=== PATIENT | female | born 1945 | race African-American/Black ===

== ENCOUNTER 2018-05-29 20:01 | Inpatient (IN) | payer MEDICARE, OTHER ==
[2018-05-29] MEDS ORDERED: ONDANSETRON HCL INJ/PF 4 MG/2 ML SDV IV ONE (21:44)
--- NOTE | 2018-05-29 21:46 | ER Document Report ---
ED Medical Screen (RME) - General Chief Complaint: Nausea/Vomiting Stated Complaint: DIZZY/LIGHT HEADED Time Seen by Provider: 05/29/18 21:44 Notes: 72-year-old female with chief complaint of abdominal pain, nausea, and 3 episodes of vomiting. No recent bowel movement. No fever. No chest pain, shortness of breath, she states she felt lightheaded earlier but not now, denies any headache or head injury. No history of bowel obstruction, no abdominal surgeries reported. Started feeling pain after she took her blood pressure medication and a BC powder. No hematemesis. TRAVEL OUTSIDE OF THE [place] IN LAST 30 DAYS: No - Related Data Allergies/Adverse Reactions: No Known Allergies Allergy (Unverified 05/29/18 20:52) Past Medical History - Social History Chew tobacco use (# tins/day): No Frequency of alcohol use: None Drug Abuse: None - Past Medical History Cardiac Medical History: Reports: Hx Hypertension Renal/ Medical History: Denies: Hx Peritoneal Dialysis Past Surgical History: Reports: Hx Orthopedic Surgery - rt knee, carpal tunnel Physical Exam - Vital signs Vitals: Temp Pulse Resp BP Pulse Ox 98.4 F 103 H 20 159/126 H 99 05/29/18 20:26 05/29/18 20:26 05/29/18 20:26 05/29/18 20:26 05/29/18 20:26 - Abdominal Tenderness: Tender - Generalized abdominal tenderness, questionable distention, no overt guarding or rigidity, exam limited by sitting position Course - Vital Signs Vital signs: Temp Pulse Resp BP Pulse Ox 98.4 F 92 20 173/110 H 97 05/29/18 20:26 05/29/18 20:54 05/29/18 20:54 05/29/18 20:54 05/29/18 20:54 Doctor's Discharge - Discharge Referrals: HEALTH,SCREENING DOC [Primary Care Provider] - Follow up as needed
--- NOTE | 2018-05-29 22:41 | RADIOLOGY REPORT (SQ) ---
EXAM DESCRIPTION: XR ABDOMEN SUPINE AND ERECT WITH CHEST (ABD ACUTE SERIES) COMPLETED DATE/TME: 05/29/2018 21:44 CLINICAL HISTORY: 72 years Female, vomiting, no recent bowel movement COMPARISON: None. NUMBER OF VIEWS/TECHNIQUE: 3 LIMITATIONS: None. FINDINGS: Intestinal gas pattern is within normal limits. Paucity of bowel gas. No suspicious calcification. Grossly intact skeletal structures. No acute cardiopulmonary findings. Possible fibroid uterus. IMPRESSION: No acute findings.
[2018-05-29 23:21] LABS: ABSOLUTE LYMPHOCYTES (AUTO) 0.7 10^3/uL (0.5-4.7); ABSOLUTE MONOCYTES (AUTO) 0.2 10^3/uL (0.1-1.4); ABSOLUTE NEUT (AUTO) 9.9 10^3/uL (1.7-8.2); BASOPHILS % (AUTO) 0.3 % (0-2); EOSINOPHILS % (AUTO) 0.1 % (0-6); HEMATOCRIT 52.1 % (36.0-47.0); HEMOGLOBIN 17.6 g/dL (12.0-15.5); LYMPHOCYTES % (AUTO) 6.4 % (13-45); MEAN CORPUSCULAR HEMOGLOBIN 32.6 pg (27.0-33.4); MEAN CORPUSCULAR HGB CONC 33.8 g/dL (32.0-36.0); MEAN CORPUSCULAR VOLUME 96 fl (80-97); MONOCYTES % (AUTO) 2.1 % (3-13); PLATELET COUNT 300 10^3/uL (150-450); RED BLOOD COUNT 5.41 10^6/uL (3.72-5.28); RED CELL DISTRIBUTION WIDTH 13.8 % (11.5-14.0); SEGMENTED NEUTROPHILS % (AUTO) 91.1 % (42-78); TOTAL CELLS COUNTED % (AUTO) 100 %; WHITE BLOOD COUNT 10.9 10^3/uL (4.0-10.5)
[2018-05-29] MEDS ORDERED: HYDROCHLOROTHIAZIDE 50 MG TABLET PO ONE (23:35)
[2018-05-29] MEDS ORDERED: RINGERS SOLUTION,LACTATED 1,000 ML IV ONE (23:35)
[2018-05-29] MEDS ORDERED: MORPHINE SULFATE 10 MG/ML INJ IV PRN (23:35)
--- NOTE | 2018-05-29 23:38 | ER Document Report ---
ED General - General Chief Complaint: Nausea/Vomiting Stated Complaint: DIZZY/LIGHT HEADED Time Seen by Provider: 05/29/18 21:44 Notes: Patient is a 72 year old female with a past medical history of essential hypertension, no history of abdominal surgeries who presents with approximately 10-12 hours of progressively worsening generalized abdominal pain, nausea and vomiting. The patient states that her symptoms started gradually and have been progressively worsening since that time. Nothing improves or worsens her pain which she does describes a cramping, aching, diffuse pain. Nothing worsens the pain. She has not been able to tolerate oral intake since onset of her symptoms. She denies any history of similar symptoms in the past. She has not contacted her general doctor regarding today's concerns. She denies any diarrhea, last bowel movement was 2 days ago. No cough or sputum production. TRAVEL OUTSIDE OF THE [place] IN LAST 30 DAYS: No - Related Data Allergies/Adverse Reactions: No Known Allergies Allergy (Verified 05/29/18 22:53) Past Medical History - General Information source: Patient, Relative - Social History Smoking Status: Former Smoker Chew tobacco use (# tins/day): No Frequency of alcohol use: None Drug Abuse: None Lives with: Spouse/Significant other Family History: Reviewed & Not Pertinent Patient has suicidal ideation: No Patient has homicidal ideation: No - Past Medical History Cardiac Medical History: Reports: Hx Hypertension Renal/ Medical History: Denies: Hx Peritoneal Dialysis Past Surgical History: Reports: Hx Orthopedic Surgery - rt knee, carpal tunnel Review of Systems - Review of Systems Notes: Constitutional: Negative for fever. HENT: Negative for sore throat. Eyes: Negative for visual changes. Cardiovascular: Negative for chest pain. Respiratory: Negative for shortness of breath. Gastrointestinal: Positive for abdominal pain and vomiting Genitourinary: Negative for dysuria. Musculoskeletal: Negative for back pain. Skin: Negative for rash. Neurological: Negative for headaches, weakness or numbness. 10 point ROS negative except as marked above and in HPI. Physical Exam - Vital signs Vitals: Temp Pulse Resp BP Pulse Ox 98.4 F 103 H 20 159/126 H 99 05/29/18 20:26 05/29/18 20:26 05/29/18 20:26 05/29/18 20:26 05/29/18 20:26 Notes: PHYSICAL EXAMINATION: GENERAL: Appears moderately uncomfortable but in no acute distress HEAD: Atraumatic, normocephalic. EYES: Pupils equal round and reactive to light, extraocular movements intact, sclera anicteric, conjunctiva are normal. ENT: nares patent, oropharynx clear without exudates. Moderately dry mucous membranes. NECK: Normal range of motion, supple without lymphadenopathy LUNGS: Breath sounds clear to auscultation bilaterally and equal. No wheezes rales or rhonchi. HEART: Regular tachycardia without murmurs ABDOMEN: Soft, generalized abdominal tenderness on palpation without any areas of localization, normoactive bowel sounds. No guarding, no rebound. No masses appreciated. EXTREMITIES: Normal range of motion, no pitting or edema. No cyanosis. NEUROLOGICAL: No focal neurological deficits. Moves all extremities spontaneously and on command. PSYCH: Normal mood, normal affect. SKIN: Warm, Dry, normal turgor, no rashes or lesions noted. Course - Re-evaluation Re-evalutation: 05/29/18 23:37 Patient presents with several hours of generalized abdominal discomfort, most localized to the upper abdomen with associated vomiting and nausea. Patient appears uncomfortable on exam, noted to be to cardiac to 120 the time of my evaluation with marked hypertension. She does have a long-standing history of severe essential hypertension and has not taken her medications tonight. The patient has no prior history of abdominal surgeries. Primary concern is for possible obstruction versus acute biliary pathology, possible pancreatitis, less likely acute mesenteric ischemia or perforation. Acute abdominal series is noted to be normal. However given her advanced age, tachycardia and degree of pain will proceed with CT scan of her abdomen and pelvis to further clarify. 05/30/18 00:55 CT scan of the abdomen and pelvis does show diffuse inflammation of a large segment of the patient's small intestine in the lower abdomen which would readily explain her abdominal pain as well as her vomiting. Most probable etiology is infectious in etiology. No arterial occlusions noted to suggest an ischemic etiology. Lactate has been added onto her labs. Ceftriaxone and Flagyl have been initiated. I have discussed with the hospitalist who has agreed to admit the patient given her ongoing tachycardia, ongoing abdominal pain requiring IV analgesia and her inability to tolerate oral intake. - Vital Signs Vital signs: Temp Pulse Resp BP Pulse Ox 98.3 F 92 20 204/114 H 95 05/30/18 01:30 05/29/18 20:54 05/30/18 02:01 05/30/18 02:01 05/30/18 02:01 - Laboratory Result Diagrams: 05/29/18 23:11 05/29/18 23:11 Laboratory results interpreted by me: 05/29/18 05/29/18 23:11 23:11 WBC 10.9 H RBC 5.41 H Hgb 17.6 H Hct 52.1 H Seg Neutrophils % 91.1 H Lymphocytes % 6.4 L Monocytes % 2.1 L Absolute Neutrophils 9.9 H Potassium 3.5 L BUN 21 H Glucose 167 H AST 38 H Total Protein 9.3 H - Diagnostic Test Radiology reviewed: Reports reviewed Discharge - Discharge Clinical Impression: Essential hypertension, Generalized abdominal pain, Enteritis Nausea and vomiting Qualifiers: Vomiting type: unspecified Vomiting Intractability: unspecified Qualified Code( s): R11.2 - Nausea with vomiting, unspecified Condition: Fair Disposition: ADMITTED INPATIENT Admitting Provider: Hospitalist Unit Admitted: Telemetry
[2018-05-29 23:39] LABS: ALANINE AMINOTRANSFERASE 19 U/L (9-52); ALBUMIN 4.3 g/dL (3.5-5.0); ALKALINE PHOSPHATASE 111 U/L (38-126); ANION GAP 13 (5-19); ASPARTATE AMINO TRANSFERASE 38 U/L (14-36); BILIRUBIN,DIRECT 0.3 mg/dL (0.0-0.4); BILIRUBIN,TOTAL 0.7 mg/dL (0.2-1.3); BLOOD UREA NITROGEN 21 mg/dL (7-20); CALCIUM 9.7 mg/dL (8.4-10.2); CARBON DIOXIDE 27 mmol/L (22-30); CHLORIDE 104 mmol/L (98-107); GLUCOSE 167 mg/dL (75-110); LIPASE 133.3 U/L (23-300); POTASSIUM 3.5 mmol/L (3.6-5.0); SODIUM 143.7 mmol/L (137-145); TOTAL PROTEIN 9.3 g/dL (6.3-8.2)
[2018-05-29] MEDS ORDERED: METOCLOPRAMIDE HCL INJ/PF 10 MG/2 ML SDV IV ONE (23:42)
--- NOTE | 2018-05-30 00:29 | RADIOLOGY REPORT (SQ) ---
EXAM DESCRIPTION: CT ABDOMEN PELVIS WITH IV CONTRAST COMPLETED DATE/TME: 05/29/2018 23:34 CLINICAL HISTORY: generalized abdominal pain, vomiting COMPARISON: None Available. TECHNIQUE: CT of the abdomen and pelvis performed following IV administration of 74 mL of Omnipaque 350. Portal venous and delayed imaging obtained. DLP: 1010.41 mGycm FINDINGS: Lung Bases: Minimal dependent atelectasis. Bones: No destructive bone lesions identified. Degenerative change of the spine. Abdomen: Liver: The liver has normal size and density. No intrahepatic mass or biliary dilatation. Subcentimeter hypodensity in the right hepatic lobe is too small for accurate CT characterization may represent a cyst. Gallbladder: No calcified gallstones. Spleen, Pancreas, and Adrenal Glands: The spleen, pancreas, and adrenal glands are unremarkable. Kidneys: The kidneys have normal size and contour without evidence of solid mass or hydronephrosis. Bilateral Bosniak class I renal cysts. Vasculature: Aortoiliac atherosclerosis. IVC is unremarkable. The portal vein is patent. The celiac artery, SMA and [place] opacify proximally.. Stomach: Fluid-filled distal esophagus as well as gastric dilatation. Other: No free intraperitoneal air. Moderate amount of free fluid in the abdomen. Pelvis: Bladder: Urinary bladder is unremarkable. Bowel: Diffuse wall thickening of loops of small bowel in the lower abdomen. Hypoattenuation of the wall of the affected small bowel without evidence of pneumatosis. Inflammatory change in the adjacent mesentery. No dilated loops of bowel. Scattered diverticula of the colon. Appendix: Normal appendix. Pelvis: Large peripherally calcified exophytic structure arising from the uterus measuring 6.8 x 6.9 cm likely represents a uterine fibroid. IMPRESSION: 1. Long segment wall thickening with decreased wall attenuation and adjacent mesenteric inflammatory change of loops of small bowel in the lower abdomen. These findings are compatible with nonspecific enteritis. This could be of infectious, inflammatory, or ischemic etiology. No proximal occlusion noted of the visceral arteries. 2. Moderate amount of ascites. 3. Mild gastric distention with fluid in the esophagus. These findings may be related to gastroparesis. 4. There is a 6.9 cm structure arising from the uterus with peripheral calcifications possibly representing a uterine fibroid. This exam was performed according to our departmental dose-optimization program, which includes automated exposure control, adjustment of the mA and/or kV according to patient size and/or use of iterative reconstruction technique.
[2018-05-30] MEDS ORDERED: HYDROCHLOROTHIAZIDE 50 MG TABLET ONE (00:36)
[2018-05-30] MEDS ORDERED: CEFTRIAXONE INJ 1000 MG VIAL IV ONE (00:50)
[2018-05-30] MEDS ORDERED: PANTOPRAZOLE SODIUM 40 MG VIAL IV ONE (00:54)
[2018-05-30] MEDS ORDERED: METRONIDAZOLE 500 MG/NS RTU 500 MG/100 ML RTUPB IV ONE (01:00)
[2018-05-30 03:01] LABS: APPEARANCE,URINE CLEAR; BILIRUBIN,URINE NEGATIVE (NEGATIVE); COLOR,URINE YELLOW; GLUCOSE, URINE NEGATIVE (NEGATIVE); KETONES,URINE TRACE mg/dL (NEGATIVE); LEUKOCYTE ESTERASE,URINE NEGATIVE (NEGATIVE); NITRITE,URINE NEGATIVE (NEGATIVE); PROTEIN,URINE 100 mg/dL (NEGATIVE); UROBILINOGEN,URINE NEGATIVE mg/dL (<2.0)
[2018-05-30 03:02] LABS: URINE SPECIFIC GRAVITY > 1.060
[2018-05-30] MEDS ORDERED: POTASSI CL 20 MEQ/NS 1L 1,000 ML IV PRN (03:03)
[2018-05-30] MEDS ORDERED: GLUCAGON,HUMAN RECOMB 1 MG INJ SUBCUT PRN (03:03)
[2018-05-30] MEDS ORDERED: ACETAMINOPHEN 650 MG SUPP.RECT PR PRN (03:03)
[2018-05-30] MEDS ORDERED: DEXTROSE 40% GEL 15 GM TUBE PO PRN ×2 (03:03)
[2018-05-30] MEDS ORDERED: ACETAMINOPHEN 325 MG TABLET PO PRN (03:03)
[2018-05-30] MEDS ORDERED: MAG HYDROX/AL HYDROX/SIMETH SUSP 30 ML UDCUP PO PRN (03:03)
[2018-05-30] MEDS ORDERED: DEXTROSE 50%-WATER 25 GM/50 ML DISP.SYRIN IV PRN ×2 (03:03)
[2018-05-30] MEDS ORDERED: LABETALOL HCL INJ 20 MG/4 ML DISP.SYRIN IV PRN (03:12)
[2018-05-30] MEDS ORDERED: METOPROLOL TARTRATE PF/INJ 5 MG/5 ML SDV IV PRN (03:13)
[2018-05-30] MEDS ORDERED: MORPHINE SULFATE 10 MG/ML INJ IV PRN (03:25)
--- NOTE | 2018-05-30 04:08 | PDOC H&P ---
History of Present Illness Admission Date/PCP: 05/30/18 01:04 DINAH PATE MD Patient complains of: Abdominal pain History of Present Illness: CHELSIE DELANEY is a 72 year old female comes to the emergency department complaining of abdominal pain, nausea and vomiting. She tells me that last Saturday she fell and broke her right arm, on Saturday she is started with a medication that she does not remember that was given for her arm and she started with abdominal pain, diffuse across her abdomen has been worsening over time, today was 10/10 intensity, sharp in nature, yesterday morning started with episodes of persistent nausea and nonbloody vomiting with clear secretions. Her appetite is severely decreased and she has been eating in the last 2 days. Tells me that she had an episode of fever today but no chills, denies diarrhea or urinary symptoms. Feels generalized weakness, denies dizziness or chills. She did not pass gas since morning, her last bowel movement was 2 days ago. Complains of abdominal distention. CT abdomen and pelvis done in the ED shows long segment wall thickening of a small bowel while compatible with enteritis associated with mesenteric inflammation. Given IV Rocephin and IV Flagyl in the ED. She also came with elevated blood pressure 220/119 LA 3.7. Past Medical History Cardiac Medical History: Reports: Hypertension Past Surgical History Past Surgical History: Reports: Orthopedic Surgery - rt knee replacement, carpal tunnel Social History Information Source: Patient Lives with: Spouse/Significant other Smoking Status: Former Smoker Frequency of Alcohol Use: None Hx Recreational Drug Use: No Hx Prescription Drug Abuse: No Past Social History Note: Lives with and grand child Family History Family History: Reviewed & Not Pertinent Family History: Remarkable for mother with hypertension, does not know about her father Parental Family History Reviewed: Yes - As above Children Family History Reviewed: NA Sibling(s) Family History Reviewed.: NA Medication/Allergy Allergies/Adverse Reactions: No Known Allergies Allergy (Verified 05/29/18 22:53) Review of Systems Review of Systems: As outlined in the HPI, others negative Physical Exam Vital Signs: Temp Pulse Resp BP Pulse Ox 98.3 F 92 20 160/127 H 95 05/30/18 01:30 05/29/18 20:54 05/30/18 02:01 05/30/18 03:01 05/30/18 03:01 Intake & Output 05/28/18 05/29/18 05/30/18 06:59 06:59 06:59 Intake Total 1000 Balance 1000 Additional comments: General appearance: Well-developed, well-nourished, alert and cooperative, and appears to be in no acute distress Head: Normocephalic Eyes: PEERL, EOMI, vision is grossly intact. Ears: External auditory canal and tympanic membranes clear, hearing grossly intact. Nose: No nasal discharge. Throat: Oral cavity and pharynx normal. No inflammation, swelling, exudate or lesions. Neck: Neck supple, nontender without lymphadenopathy, masses or thyromegaly. Cardiac: Normal S1 and S2. No S3, S4 or murmurs. Rhythm is regular. There is no peripheral edema, cyanosis or pallor. Extremities are warm and well perfused. Capillary refill is less than 2 seconds. No carotid bruits. Lungs: Clear to auscultation and percussion without rales, rhonchi, wheezing or diminished breath sounds. Not using accessory muscles. Abdomen: Decreased bowel sounds. Soft. Moderate distended, tenderness around periumbilical area. No guarding or rebound. No masses. No hepatosplenomegaly Extremities: No significant deformity or joint abnormality. No edema. Peripheral pulses intact. No varicosities. Neurological: Cranial nerves II through XII grossly intact. Strength and sensation symmetric and intact throughout. Reflexes 2+ throughout. Skin: Skin normal color, texture and turgor with no lesions or eruptions, warm and dry. Psychiatric: The mental examination revealed the patient was oriented to person , place, and time. The patient was able to demonstrate good judgment on recent , without hallucinations, abnormal affect or abnormal behaviors. Results Laboratory Results: 05/30/18 05/30/18 01:13 02:43 Lactic Acid 3.7 H Urine Color YELLOW Urine Appearance CLEAR Urine pH 5.0 Ur Specific [place] > 1.060 Urine Protein 100 H Urine Glucose (UA) NEGATIVE Urine Ketones TRACE H Urine Blood NEGATIVE Urine Nitrite NEGATIVE Ur Leukocyte Esterase NEGATIVE Urine WBC (Auto) 3 Urine RBC (Auto) 3 05/30/18 01:13 Troponin I < 0.012 05/29/18 05/29/18 05/30/18 23:11 23:11 01:13 WBC 10.9 H RBC 5.41 H Hgb 17.6 H Hct 52.1 H MCV 96 MCH 32.6 MCHC 33.8 RDW 13.8 Plt Count 300 Seg Neutrophils % 91.1 H Lymphocytes % 6.4 L Monocytes % 2.1 L Eosinophils % 0.1 Basophils % 0.3 Absolute Neutrophils 9.9 H Absolute Lymphocytes 0.7 Absolute Monocytes 0.2 Absolute Eosinophils 0.0 Absolute Basophils 0.0 Sodium 143.7 Potassium 3.5 L Chloride 104 Carbon Dioxide 27 Anion Gap 13 BUN 21 H Creatinine 0.63 Est GFR ( Amer) > 60 Est GFR (Non-Af Amer) > 60 Glucose 167 H Lactic Acid 3.7 H Calcium 9.7 Total Bilirubin 0.7 Direct Bilirubin 0.3 AST 38 H ALT 19 Alkaline Phosphatase 111 Troponin I Total Protein 9.3 H Albumin 4.3 Lipase 133.3 Urine Color Urine Appearance Urine pH Ur Specific [place] Urine Glucose (UA) Urine Ketones Urine Blood Urine Nitrite Urine Bilirubin Urine Urobilinogen Ur Leukocyte Esterase Urine WBC (Auto) Urine RBC (Auto) Squamous Epi Cells Auto Urine Mucus (Auto) Urine Ascorbic Acid 05/30/18 05/30/18 01:13 02:43 WBC RBC Hgb Hct MCV MCH MCHC RDW Plt Count Seg Neutrophils % Lymphocytes % Monocytes % Eosinophils % Basophils % Absolute Neutrophils Absolute Lymphocytes Absolute Monocytes Absolute Eosinophils Absolute Basophils Sodium Potassium Chloride Carbon Dioxide Anion Gap BUN Creatinine Est GFR ( Amer) Est GFR (Non-Af Amer) Glucose Lactic Acid Calcium Total Bilirubin Direct Bilirubin AST ALT Alkaline Phosphatase Troponin I < 0.012 Total Protein Albumin Lipase Urine Color YELLOW Urine Appearance CLEAR Urine pH 5.0 Ur Specific [place] > 1.060 Urine Glucose (UA) NEGATIVE Urine Ketones TRACE H Urine Blood NEGATIVE Urine Nitrite NEGATIVE Urine Bilirubin NEGATIVE Urine Urobilinogen NEGATIVE Ur Leukocyte Esterase NEGATIVE Urine WBC (Auto) 3 Urine RBC (Auto) 3 Squamous Epi Cells Auto 1 Urine Mucus (Auto) OCC Urine Ascorbic Acid NEGATIVE Impressions: Acute Abdomen Series 05/29/18 21:44 IMPRESSION: No acute findings. Abdomen/Pelvis CT 05/29/18 23:34 IMPRESSION: 1. Long segment wall thickening with decreased wall attenuation and adjacent mesenteric inflammatory change of loops of small bowel in the lower abdomen. These findings are compatible with nonspecific enteritis. This could be of infectious, inflammatory, or ischemic etiology. No proximal occlusion noted of the visceral arteries. 2. Moderate amount of ascites. 3. Mild gastric distention with fluid in the esophagus. These findings may be related to gastroparesis. 4. There is a 6.9 cm structure arising from the uterus with peripheral calcifications possibly representing a uterine fibroid. This exam was performed according to our departmental dose-optimization program, which includes automated exposure control, adjustment of the mA and/or kV according to patient size and/or use of iterative reconstruction technique. Assessment & Plan - Diagnosis (1) Enteritis Is this a current diagnosis for this admission?: Yes Plan: Patient comes with abdominal pain, persistent nausea and vomiting. Not passing gas and last bowel movement [address] abdomen shows enteritis with mesenteric inflammation. IV Rocephin and IV Flagyl given, I will continue with IV ciprofloxacin twice a day. Please follow blood cultures. Unclear if this is bacterial, viral or ischemic. Due to the mesenteric inflammation I will ask general surgery to evaluate the patient and give us recommendations, we appreciate their input. IV Protonix. Patient will remain n.p.o. IV fluids. The pain medication and antiemetics as needed (2) Hypertensive urgency Is this a current diagnosis for this admission?: Yes Plan: Blood pressure 220/119, likely secondary to do not take medications at home as. She could not tolerate any p.o. intake. I will place the patient on Lopressor 5 mg every 6 hours schedule with IV labetalol as needed. (3) Severe dehydration Is this a current diagnosis for this admission?: Yes Plan: Secondary to persistent nausea and vomiting, urinalysis with a specific gravity of 1.060, IV fluid bolus given in the ED, I will continue with NS KCL running at 100 cc/h. We will reassess renal function in the morning, not on renal failure, but noted hemoconcentration. (4) Lactic acidosis Is this a current diagnosis for this admission?: Yes Plan: Lactic acid 3.7, patient is receiving IV fluid hydration. It could be also secondary to ischemic bowel, will reassess lactic acid with morning labs. - Time Time Spent: 30 to 50 Minutes - Inpatient Certification Based on my medical assessment, after consideration of the patient's comorbidities, presenting symptoms, or acuity I expect that the services needed warrant INPATIENT care.: Yes I certify that my determination is in accordance with my understanding of Medicare's requirements for reasonable and necessary INPATIENT services [42 CFR 412.3e].: Yes Medical Necessity: Risk of Complication if Not Cared For in Hospital
[2018-05-30] MEDS ORDERED: HYDRALAZINE HCL INJ/PF 20 MG/1 ML SDV ONE (04:47)
[2018-05-30] MEDS ORDERED: CIPROFLOXACIN 400 MG/D5W RTU 400 MG/200 ML RTUPB IV ONE (05:00)
[2018-05-30] MEDS: HYDRALAZINE HCL INJ/PF 20 MG/1 ML SDV IV PRN (05:14)
[2018-05-30] MEDS ORDERED: HYDROMORPHONE HCL INJ/PF 2 MG/ML AMPULE IV ONE (05:29)
[2018-05-30] MEDS: METOPROLOL TARTRATE PF/INJ 5 MG/5 ML SDV IV SCH ×3 (05:39→17:43)
[2018-05-30] MEDS: METOCLOPRAMIDE HCL INJ/PF 10 MG/2 ML SDV IV SCH ×3 (06:45→17:43)
[2018-05-30] MEDS: HEPARIN SOD (PORCINE) 5,000 UNIT/ML 1 ML SYRINGE SUBCUT SCH ×3 (06:47→22:00)
--- NOTE | 2018-05-30 06:54 | PDOC CONSULTATION ---
Consultation Consult Date: 05/30/18 Attending physician:: VONNIE KOROMA Consult reason:: Gastroenteritis History of Present Illness Admission Date/PCP: 05/30/18 01:04 DINAH PATE MD Patient complains of: Abdominal pain History of Present Illness: CHELSIE DELANEY is a 72 year old female Who presents the emergency department by ground rescue complaining of a week history of intermittent abdominal pain, nausea, anorexia abdominal bloating; last bowel movement 2 days ago, normal. Patient has chronic constipation. Patient had a colonoscopy with the last years by Dr. Sahu, reportedly negative. According the patient she denies history of trauma, previous episodes of abdominal pain but occasionally has bloating. She has taken pain medication, BC powder for recent right wrist fracture sustained while she was flicking a frog off of the dorsal aspect of her left wrist. She is approximately 1 week ago. Patient seen in the emergency department where she was found to have abdominal distention. CT scan of the abdomen and pelvis without oral contrast showed intraperitoneal fluid, a loop of small bowel, with thickened small bowel wall. Surgery was consulted for further evaluation. While in the emergency department the patient received narcotics. She feels better now. Past Medical History Cardiac Medical History: Reports: Hypertension Past Surgical History Past Surgical History: Reports: Orthopedic Surgery - rt knee replacement, carpal tunnel, Other - Right knee replacement Social History Lives with: Spouse/Significant other Smoking Status: Former Smoker Frequency of Alcohol Use: None Hx Recreational Drug Use: No Hx Prescription Drug Abuse: No Family History Family History: Reviewed & Not Pertinent Parental Family History Reviewed: Yes Children Family History Reviewed: Yes Sibling(s) Family History Reviewed.: Yes Medication/Allergy Allergies/Adverse Reactions: No Known Allergies Allergy (Verified 05/29/18 22:53) Review of Systems Constitutional: PRESENT: as per HPI Eyes: ABSENT: visual disturbances Ears: ABSENT: hearing changes Cardiovascular: ABSENT: chest pain, dyspnea on exertion, edema, orthropnea, palpitations Gastrointestinal: PRESENT: as per HPI Physical Exam Vital Signs: Temp Pulse Resp BP Pulse Ox 98.5 F 92 14 111/62 96 05/30/18 05:00 05/29/18 20:54 05/30/18 06:01 05/30/18 06:01 05/30/18 06:30 Intake & Output 05/28/18 05/29/18 05/30/18 06:59 06:59 06:59 Intake Total 1300 Balance 1300 General appearance: PRESENT: mild distress Head exam: PRESENT: normocephalic Eye exam: PRESENT: EOMI Mouth exam: PRESENT: dry mucosa Neck exam: PRESENT: full ROM Respiratory exam: PRESENT: clear to auscultation isaías Cardiovascular exam: PRESENT: RRR Pulses: PRESENT: normal carotid pulses, normal radial pulses GI/Abdominal exam: PRESENT: other - Distended, mildly tympanitic no peritoneal signs no rigidity no organ Rectal exam: PRESENT: deferred, other Extremities exam: PRESENT: full ROM Musculoskeletal exam: PRESENT: full ROM Neurological exam: PRESENT: alert, awake, oriented to person, oriented to time, oriented to situation Psychiatric exam: PRESENT: appropriate affect Skin exam: PRESENT: dry Results Laboratory Results: 05/30/18 05/30/18 01:13 02:43 Lactic Acid 3.7 H Urine Color YELLOW Urine Appearance CLEAR Urine pH 5.0 Ur Specific [place] > 1.060 Urine Protein 100 H Urine Glucose (UA) NEGATIVE Urine Ketones TRACE H Urine Blood NEGATIVE Urine Nitrite NEGATIVE Ur Leukocyte Esterase NEGATIVE Urine WBC (Auto) 3 Urine RBC (Auto) 3 05/30/18 01:13 Troponin I < 0.012 Impressions: Acute Abdomen Series 05/29/18 21:44 IMPRESSION: No acute findings. Abdomen/Pelvis CT 05/29/18 23:34 IMPRESSION: 1. Long segment wall thickening with decreased wall attenuation and adjacent mesenteric inflammatory change of loops of small bowel in the lower abdomen. These findings are compatible with nonspecific enteritis. This could be of infectious, inflammatory, or ischemic etiology. No proximal occlusion noted of the visceral arteries. 2. Moderate amount of ascites. 3. Mild gastric distention with fluid in the esophagus. These findings may be related to gastroparesis. 4. There is a 6.9 cm structure arising from the uterus with peripheral calcifications possibly representing a uterine fibroid. This exam was performed according to our departmental dose-optimization program, which includes automated exposure control, adjustment of the mA and/or kV according to patient size and/or use of iterative reconstruction technique. Assessment & Plan - Diagnosis (1) Generalized abdominal pain Is this a current diagnosis for this admission?: Yes Plan: Impression: Abdominal pain nausea, bloating, severe dehydration, CT scan findings consistent with gastroenteritis; however intraperitoneal fluid of unclear etiology. Recommendations: 1. Hold all narcotics 2. Increase aggressiveness of fluid resuscitation; patient may benefit from a large bore nasogastric tube to relieve belching. 3. Repeat CT scan with oral contrast which may be both diagnostic and therapeutic in delineating the small bowel dilatation pathoanatomy 4. No immediate indication for surgical intervention; we will follow with you (2) Essential hypertension Is this a current diagnosis for this admission?: Yes (3) Lactic acidosis Is this a current diagnosis for this admission?: Yes (4) Nausea and vomiting Qualifiers: Vomiting type: unspecified Vomiting Intractability: unspecified Qualified Code(s): R11.2 - Nausea with vomiting, unspecified (5) Severe dehydration Is this a current diagnosis for this admission?: Yes - Time Time Spent: 30 to 50 Minutes Smoking Cessation Education: over 10 minutes Medications reviewed and adjusted accordingly: Yes Anticipated discharge: Home - Inpatient Certification Based on my medical assessment, after consideration of the patient's comorbidities, presenting symptoms, or acuity I expect that the services needed warrant INPATIENT care.: Yes I certify that my determination is in accordance with my understanding of Medicare's requirements for reasonable and necessary INPATIENT services [42 CFR 412.3e].: Yes
[2018-05-30] MEDS ORDERED: NORMAL SALINE 1000 ML 1,000 ML IV ONE (06:59)
--- NOTE | 2018-05-30 07:31 | RADIOLOGY REPORT (SQ) ---
CLINICAL DATA: 72-year-old female who presents for placement of NG tube. TECHNICAL DATA: A single supine x-ray of the abdomen was performed on 05/30/2018 at 6:58 AM. Comparison: CT abdomen and pelvis performed on 05/29/2018. FINDINGS: The visualized bowel gas pattern is nonspecific and nonobstructive. A nasogastric tube is present which extends below the diaphragm and projects over the region of the body of the stomach. The visualized portions of the lungs are clear. The cardiac silhouette is top normal in size. No pathologic abdominal or pelvic calcifications are identified. No abnormal air collections are identified. No focal soft tissue abnormalities are seen. No acute osseous abnormalities are identified. IMPRESSION: The nasogastric tube extends below the diaphragm and projects over the region of the body of the stomach.
--- NOTE | 2018-05-30 07:37 | EKG REPORT ---
SEVERITY:- ABNORMAL ECG - SINUS TACHYCARDIA PROBABLE LEFT ATRIAL ABNORMALITY PROBABLE LEFT VENTRICULAR HYPERTROPHY BORDERLINE T ABNORMALITIES, INFERIOR LEADS : Confirmed by: Luther Walker MD 30-May-2018 07:36:55
--- NOTE | 2018-05-30 07:40 | EKG REPORT ---
SEVERITY:- ABNORMAL ECG - SINUS TACHYCARDIA LEFT ATRIAL ABNORMALITY LEFT AXIS DEVIATION LEFT VENTRICULAR HYPERTROPHY BORDERLINE T ABNORMALITIES, INFERIOR LEADS POOR R WAVE PROGRESSION PRECORDIAL LEADS,CONSIDER LEAD PLACEMENT ERROR VS OLD ANTERIOR MD. : Confirmed by: Luther Walker MD 30-May-2018 07:39:42
[2018-05-30 07:49] LABS: ABSOLUTE LYMPHOCYTES (AUTO) 0.8 10^3/uL (0.5-4.7); ABSOLUTE MONOCYTES (AUTO) 0.8 10^3/uL (0.1-1.4); BASOPHILS % (AUTO) 0.5 % (0-2); HEMATOCRIT 45.1 % (36.0-47.0); LYMPHOCYTES % (AUTO) 7.2 % (13-45); MEAN CORPUSCULAR HEMOGLOBIN 32.4 pg (27.0-33.4); MEAN CORPUSCULAR VOLUME 95 fl (80-97); MONOCYTES % (AUTO) 7.5 % (3-13); PLATELET COUNT 305 10^3/uL (150-450); RED BLOOD COUNT 4.73 10^6/uL (3.72-5.28); RED CELL DISTRIBUTION WIDTH 13.7 % (11.5-14.0); SEGMENTED NEUTROPHILS % (AUTO) 84.8 % (42-78); TOTAL CELLS COUNTED % (AUTO) 100 %; WHITE BLOOD COUNT 10.6 10^3/uL (4.0-10.5)
[2018-05-30 07:50] LABS: HEMOGLOBIN 15.3 g/dL (12.0-15.5)
[2018-05-30 07:57] LABS: INTERNATIONAL RATION (INR) 0.98; PROTHROMBIN TIME 13.5 SEC (11.4-15.4)
[2018-05-30 07:58] LABS: PARTIAL THROMBOPLASTIN TIME 24.9 SEC (23.5-35.8)
[2018-05-30 08:17] LABS: ALANINE AMINOTRANSFERASE 18 U/L (9-52); ALBUMIN 3.2 g/dL (3.5-5.0); ALKALINE PHOSPHATASE 72 U/L (38-126); ANION GAP 13 (5-19); ASPARTATE AMINO TRANSFERASE 19 U/L (14-36); BILIRUBIN,DIRECT 0.3 mg/dL (0.0-0.4); BILIRUBIN,TOTAL 0.4 mg/dL (0.2-1.3); BLOOD UREA NITROGEN 22 mg/dL (7-20); CALCIUM 8.4 mg/dL (8.4-10.2); CARBON DIOXIDE 20 mmol/L (22-30); CHLORIDE 107 mmol/L (98-107); GLUCOSE 142 mg/dL (75-110); POTASSIUM 3.6 mmol/L (3.6-5.0); SODIUM 139.7 mmol/L (137-145); TOTAL PROTEIN 6.9 g/dL (6.3-8.2)
[2018-05-30] MEDS: PANTOPRAZOLE SODIUM 40 MG VIAL IV SCH (11:02)
[2018-05-30] MEDS ORDERED: RINGERS SOLUTION,LACTATED 1,000 ML IV ONE (14:09)
[2018-05-30] MEDS ORDERED: BENZOCAINE 20% AEROSOL SPRAY 60 GM TP PRN (16:57)
--- NOTE | 2018-05-30 16:57 | Progress Note ---
<RUFINO SHARP - Last Filed: 05/30/18 16:50> Provider Note Provider Note: 72 y.o. F admitted with abdominal pain found to have acute enteritis on CT. Reviewed and agree with field auditor and surgicalist plan of care: 1. ENTERITIS: infectious vs inflammatory vs viral. no surgical option. Aggressive IVF and treat with ABX. Blood cultures pending. Elevated lactate (3.7 ), patient is currently not HYPOtensive or tachycardic or febrile, plan to lactate recheck in AM. 2. HTN Urgency: 220/119 initially. Treated with IV lopressor. Remained slightly hypertensive while inpatient. Increased scheduled dose of IV lopressor from 5mg to 10mg IV Q6Hr 3. DEHYDRATION: Hypovolemia secondary to dehydration. IVF bolus in ED. Changed IVF to NS @ 125mL/hr. 4. LACTIC ACIDOSIS: Lactate 3.7 secondary to hypovolemia vs enteritis. Patient is not HYPOtensive, tachycardic or febrile. Will simply follow lactate in AM. <RODOLFO DAVIS - Last Filed: 06/17/18 16:56> Assessment/Plan - Assessment/Plan Plan: I have discussed the patient in detail with GELY Sharp. I am in agreement with her evaluation and plan.
[2018-05-30] MEDS: NORMAL SALINE 1000 ML 1,000 ML IV PRN (17:09)
[2018-05-30] MEDS: CIPROFLOXACIN 400 MG/D5W RTU 400 MG/200 ML RTUPB IV SCH (17:12)
[2018-05-31] MEDS ORDERED: LISINOPRIL 10 MG TABLET PO ONE (00:15)
[2018-05-31] MEDS: METOPROLOL TARTRATE PF/INJ 5 MG/5 ML SDV IV SCH ×4 (00:21→17:18)
[2018-05-31] MEDS: METOCLOPRAMIDE HCL INJ/PF 10 MG/2 ML SDV IV SCH ×4 (00:25→17:18)
[2018-05-31] MEDS ORDERED: LOSARTAN POTASSIUM 50 MG TABLET PO ONE (00:30)
[2018-05-31] MEDS ORDERED: HYDROCHLOROTHIAZIDE 12.5 MG TABLET PO ONE (00:30)
[2018-05-31] MEDS: HYDRALAZINE HCL INJ/PF 20 MG/1 ML SDV IV PRN (01:30)
[2018-05-31] MEDS: CIPROFLOXACIN 400 MG/D5W RTU 400 MG/200 ML RTUPB IV SCH ×2 (05:37→17:18)
[2018-05-31] MEDS: HEPARIN SOD (PORCINE) 5,000 UNIT/ML 1 ML SYRINGE SUBCUT SCH ×3 (05:46→22:20)
[2018-05-31 07:12] LABS: ABSOLUTE LYMPHOCYTES (AUTO) 1.2 10^3/uL (0.5-4.7); ABSOLUTE MONOCYTES (AUTO) 0.7 10^3/uL (0.1-1.4); BASOPHILS % (AUTO) 0.3 % (0-2); HEMATOCRIT 39.3 % (36.0-47.0); HEMOGLOBIN 13.4 g/dL (12.0-15.5); LYMPHOCYTES % (AUTO) 13.8 % (13-45); MEAN CORPUSCULAR HEMOGLOBIN 32.2 pg (27.0-33.4); MEAN CORPUSCULAR VOLUME 95 fl (80-97); MONOCYTES % (AUTO) 7.7 % (3-13); PLATELET COUNT 289 10^3/uL (150-450); RED BLOOD COUNT 4.14 10^6/uL (3.72-5.28); RED CELL DISTRIBUTION WIDTH 13.6 % (11.5-14.0); SEGMENTED NEUTROPHILS % (AUTO) 78.2 % (42-78); TOTAL CELLS COUNTED % (AUTO) 100 %; WHITE BLOOD COUNT 8.9 10^3/uL (4.0-10.5)
[2018-05-31 07:28] LABS: ALANINE AMINOTRANSFERASE 23 U/L (9-52); ALKALINE PHOSPHATASE 71 U/L (38-126); ANION GAP 7 (5-19); ASPARTATE AMINO TRANSFERASE 23 U/L (14-36); BILIRUBIN,DIRECT 0.3 mg/dL (0.0-0.4); BILIRUBIN,TOTAL 0.6 mg/dL (0.2-1.3); BLOOD UREA NITROGEN 17 mg/dL (7-20); CALCIUM 8.9 mg/dL (8.4-10.2); CARBON DIOXIDE 24 mmol/L (22-30); CHLORIDE 105 mmol/L (98-107); GLUCOSE 115 mg/dL (75-110); POTASSIUM 3.5 mmol/L (3.6-5.0); SODIUM 136.3 mmol/L (137-145); TOTAL PROTEIN 6.7 g/dL (6.3-8.2)
[2018-05-31 07:29] LABS: INTERNATIONAL RATION (INR) 0.97; PROTHROMBIN TIME 13.4 SEC (11.4-15.4)
[2018-05-31 07:30] LABS: PARTIAL THROMBOPLASTIN TIME 28.6 SEC (23.5-35.8)
[2018-05-31] MEDS: NORMAL SALINE 1000 ML 1,000 ML IV PRN ×2 (09:50→22:24)
[2018-05-31] MEDS: HYDROCHLOROTHIAZIDE 12.5 MG TABLET PO SCH (09:52)
[2018-05-31] MEDS: LOSARTAN POTASSIUM 50 MG TABLET PO SCH (09:52)
[2018-05-31] MEDS: LISINOPRIL 10 MG TABLET PO SCH (09:53)
[2018-05-31] MEDS: PANTOPRAZOLE SODIUM 40 MG VIAL IV SCH (09:53)
[2018-05-31] MEDS ORDERED: METOPROLOL TARTRATE PF/INJ 5 MG/5 ML SDV IV PRN (17:45)
--- NOTE | 2018-05-31 17:52 | PDOC PROGRESS REPORT ---
<SHARPRUFINO Alessandro - Last Filed: 05/31/18 17:48> Subjective Progress Note for:: 05/31/18 Subjective:: 72 y.o. F admitted with abdominal pain found to have acute enteritis on CT. Likely inflammatory secondary to medication - patient reports she took aspirin powder and an unknown laxative around the time that her symptoms started. Additionally, the patient states she ingested apple cider vinegar with the medications. She states that she began experiencing abdominal pain/N/V shortly thereafter. The patient was seen this morning on rounds. She denies abdominal pain or nausea or vomiting. The patient states she does not feel bloated and her abdominal distention has improved. Lab work is all benign and patient's VS have remained stable for >24hrs. Abdominal exam unimpressive. +BS. No TTP. Plan to d/c NG tube and initiate clear liquids today. Reason For Visit: ACUTE ENTERITIS Physical Exam Vital Signs: Temp Pulse Resp BP Pulse Ox 98.4 F 85 20 173/86 H 100 05/31/18 15:32 05/31/18 15:32 05/31/18 15:32 05/31/18 15:32 05/31/18 15:32 Intake & Output 05/30/18 05/31/18 06/01/18 06:59 06:59 06:59 Intake Total 1300 3825 Output Total 720 550 Balance 1300 3105 -550 Weight 77.9 kg Results Laboratory Results: 05/31/18 06:09 05/31/18 06:09 05/31/18 05/31/18 05/31/18 06:09 06:09 06:09 WBC 8.9 RBC 4.14 Hgb 13.4 Hct 39.3 MCV 95 MCH 32.2 MCHC 34.0 RDW 13.6 Plt Count 289 Seg Neutrophils % 78.2 H Lymphocytes % 13.8 Monocytes % 7.7 Eosinophils % 0.0 Basophils % 0.3 Absolute Neutrophils 7.0 Absolute Lymphocytes 1.2 Absolute Monocytes 0.7 Absolute Eosinophils 0.0 Absolute Basophils 0.0 Sodium 136.3 L Potassium 3.5 L Chloride 105 Carbon Dioxide 24 Anion Gap 7 BUN 17 Creatinine 0.67 Est GFR ( Amer) > 60 Est GFR (Non-Af Amer) > 60 Glucose 115 H Lactic Acid 1.2 Calcium 8.9 Magnesium Total Bilirubin 0.6 AST 23 ALT 23 Alkaline Phosphatase 71 Total Protein 6.7 Albumin 3.0 L 05/31/18 06:09 WBC RBC Hgb Hct MCV MCH MCHC RDW Plt Count Seg Neutrophils % Lymphocytes % Monocytes % Eosinophils % Basophils % Absolute Neutrophils Absolute Lymphocytes Absolute Monocytes Absolute Eosinophils Absolute Basophils Sodium Potassium Chloride Carbon Dioxide Anion Gap BUN Creatinine Est GFR ( Amer) Est GFR (Non-Af Amer) Glucose Lactic Acid Calcium Magnesium 1.8 Total Bilirubin AST ALT Alkaline Phosphatase Total Protein Albumin 05/30/18 01:13 Troponin I < 0.012 Impressions: Acute Abdomen Series 05/29/18 21:44 IMPRESSION: No acute findings. Abdomen/Pelvis CT 05/29/18 23:34 IMPRESSION: 1. Long segment wall thickening with decreased wall attenuation and adjacent mesenteric inflammatory change of loops of small bowel in the lower abdomen. These findings are compatible with nonspecific enteritis. This could be of infectious, inflammatory, or ischemic etiology. No proximal occlusion noted of the visceral arteries. 2. Moderate amount of ascites. 3. Mild gastric distention with fluid in the esophagus. These findings may be related to gastroparesis. 4. There is a 6.9 cm structure arising from the uterus with peripheral calcifications possibly representing a uterine fibroid. This exam was performed according to our departmental dose-optimization program, which includes automated exposure control, adjustment of the mA and/or kV according to patient size and/or use of iterative reconstruction technique. KUB X-Ray 05/30/18 06:46 IMPRESSION: The nasogastric tube extends below the diaphragm and projects over the region of the body of the stomach. Assessment & Plan - Diagnosis (1) Lactic acidosis Is this a current diagnosis for this admission?: Yes Plan: RESOLVED Lactate 1.9 today, down from 3.7 Will recheck in AM (2) Enteritis Is this a current diagnosis for this admission?: Yes Plan: N/V/ABDOMINAL PAIN Likely inflammatory, no clear infectious source Patient denies abdominal pain today D/C NG tube Initiate clear liquids (3) Essential hypertension Is this a current diagnosis for this admission?: Yes Plan: Patient has a PMH of HTN Continue home dose lisinopril PRN Lopressor for SBP >170 (4) Generalized abdominal pain Is this a current diagnosis for this admission?: Yes Plan: RESOLVED Secondary to enteritis Patient denies abdominal pain today D/C NGT (5) Nausea and vomiting QualifierTitle: Vomiting type: unspecified Vomiting Intractability: unspecified Qualified Code(s): R11.2 - Nausea with vomiting, unspecified Is this a current diagnosis for this admission?: Yes Plan: RESOLVED PRN Zofran (6) Severe dehydration Is this a current diagnosis for this admission?: Yes Plan: Secondary to GI loss stemming from enteritis Treated with IVF bolus and maintenance IVF Continue IVF until patient can tolerate PO - Time Time Spent with patient: 15-24 minutes Medications reviewed and adjusted accordingly: Yes Anticipated discharge: Home Within: within 24 hours - Inpatient Certification Based on my medical assessment, after consideration of the patient's comorbidities, presenting symptoms, or acuity I expect that the services needed warrant INPATIENT care.: Yes I certify that my determination is in accordance with my understanding of Medicare's requirements for reasonable and necessary INPATIENT services [42 CFR 412.3e].: Yes Medical Necessity: Risk of Complication if Not Cared For in Hospital - Plan Summary Plan Summary: D/C NGT. START CLEAR LIQUID DIET <RODOLFO DAVIS M - Last Filed: 06/17/18 17:06> Subjective Reason For Visit: ACUTE ENTERITIS Physical Exam Vital Signs: Temp Pulse Resp BP Pulse Ox 99.3 F 102 H 18 165/72 H 99 06/02/18 09:39 06/02/18 09:39 06/02/18 09:39 06/02/18 09:39 06/02/18 09:39 Results Laboratory Results: 06/02/18 04:38 06/02/18 04:38 05/30/18 01:13 Troponin I < 0.012 Impressions: Acute Abdomen Series 05/29/18 21:44 IMPRESSION: No acute findings. Abdomen/Pelvis CT 05/29/18 23:34 IMPRESSION: 1. Long segment wall thickening with decreased wall attenuation and adjacent mesenteric inflammatory change of loops of small bowel in the lower abdomen. These findings are compatible with nonspecific enteritis. This could be of infectious, inflammatory, or ischemic etiology. No proximal occlusion noted of the visceral arteries. 2. Moderate amount of ascites. 3. Mild gastric distention with fluid in the esophagus. These findings may be related to gastroparesis. 4. There is a 6.9 cm structure arising from the uterus with peripheral calcifications possibly representing a uterine fibroid. This exam was performed according to our departmental dose-optimization program, which includes automated exposure control, adjustment of the mA and/or kV according to patient size and/or use of iterative reconstruction technique. KUB X-Ray 05/30/18 06:46 IMPRESSION: The nasogastric tube extends below the diaphragm and projects over the region of the body of the stomach. Provider Note Provider Note: I have discussed the patient with GELY Sharp. I am in agreement with her evaluation and plan.
--- NOTE | 2018-05-31 20:25 | PDOC PROGRESS REPORT ---
Subjective Progress Note for:: 05/31/18 Subjective:: no pains. Reason For Visit: ACUTE ENTERITIS Physical Exam Vital Signs: Temp Pulse Resp BP Pulse Ox 98.4 F 85 20 173/86 H 100 05/31/18 15:32 05/31/18 15:32 05/31/18 15:32 05/31/18 15:32 05/31/18 15:32 Intake & Output 05/30/18 05/31/18 06/01/18 06:59 06:59 06:59 Intake Total 1300 4025 550 Output Total 720 1550 Balance 1300 3305 -1000 Weight 77.9 kg Exam: Abd is soft non tender Results Laboratory Results: 05/31/18 06:09 05/31/18 06:09 05/31/18 05/31/18 05/31/18 06:09 06:09 06:09 WBC 8.9 RBC 4.14 Hgb 13.4 Hct 39.3 MCV 95 MCH 32.2 MCHC 34.0 RDW 13.6 Plt Count 289 Seg Neutrophils % 78.2 H Lymphocytes % 13.8 Monocytes % 7.7 Eosinophils % 0.0 Basophils % 0.3 Absolute Neutrophils 7.0 Absolute Lymphocytes 1.2 Absolute Monocytes 0.7 Absolute Eosinophils 0.0 Absolute Basophils 0.0 Sodium 136.3 L Potassium 3.5 L Chloride 105 Carbon Dioxide 24 Anion Gap 7 BUN 17 Creatinine 0.67 Est GFR ( Amer) > 60 Est GFR (Non-Af Amer) > 60 Glucose 115 H Lactic Acid 1.2 Calcium 8.9 Magnesium Total Bilirubin 0.6 AST 23 ALT 23 Alkaline Phosphatase 71 Total Protein 6.7 Albumin 3.0 L 05/31/18 06:09 WBC RBC Hgb Hct MCV MCH MCHC RDW Plt Count Seg Neutrophils % Lymphocytes % Monocytes % Eosinophils % Basophils % Absolute Neutrophils Absolute Lymphocytes Absolute Monocytes Absolute Eosinophils Absolute Basophils Sodium Potassium Chloride Carbon Dioxide Anion Gap BUN Creatinine Est GFR ( Amer) Est GFR (Non-Af Amer) Glucose Lactic Acid Calcium Magnesium 1.8 Total Bilirubin AST ALT Alkaline Phosphatase Total Protein Albumin 05/30/18 01:13 Troponin I < 0.012 Impressions: Acute Abdomen Series 05/29/18 21:44 IMPRESSION: No acute findings. Abdomen/Pelvis CT 05/29/18 23:34 IMPRESSION: 1. Long segment wall thickening with decreased wall attenuation and adjacent mesenteric inflammatory change of loops of small bowel in the lower abdomen. These findings are compatible with nonspecific enteritis. This could be of infectious, inflammatory, or ischemic etiology. No proximal occlusion noted of the visceral arteries. 2. Moderate amount of ascites. 3. Mild gastric distention with fluid in the esophagus. These findings may be related to gastroparesis. 4. There is a 6.9 cm structure arising from the uterus with peripheral calcifications possibly representing a uterine fibroid. This exam was performed according to our departmental dose-optimization program, which includes automated exposure control, adjustment of the mA and/or kV according to patient size and/or use of iterative reconstruction technique. KUB X-Ray 05/30/18 06:46 IMPRESSION: The nasogastric tube extends below the diaphragm and projects over the region of the body of the stomach. Assessment & Plan - Time Time Spent with patient: 15-24 minutes - Plan Summary Plan Summary: Enteritis appears to be resolving. May gradually increse po intake Will sign off. Call prn.
[2018-06-01] MEDS: METOCLOPRAMIDE HCL INJ/PF 10 MG/2 ML SDV IV SCH ×5 (00:49→23:04)
[2018-06-01] MEDS: CIPROFLOXACIN 400 MG/D5W RTU 400 MG/200 ML RTUPB IV SCH ×2 (06:00→18:34)
[2018-06-01] MEDS: HEPARIN SOD (PORCINE) 5,000 UNIT/ML 1 ML SYRINGE SUBCUT SCH ×3 (06:01→21:49)
[2018-06-01 10:12] LABS: HEMOGLOBIN 12.5 g/dL (12.0-15.5); MEAN CORPUSCULAR HEMOGLOBIN 32.1 pg (27.0-33.4); MEAN CORPUSCULAR HGB CONC 33.9 g/dL (32.0-36.0); MEAN CORPUSCULAR VOLUME 95 fl (80-97); PLATELET COUNT 237 10^3/uL (150-450); RED CELL DISTRIBUTION WIDTH 13.6 % (11.5-14.0); WHITE BLOOD COUNT 7.3 10^3/uL (4.0-10.5)
[2018-06-01] MEDS: LOSARTAN POTASSIUM 50 MG TABLET PO SCH (10:33)
[2018-06-01] MEDS: PANTOPRAZOLE SODIUM 40 MG VIAL IV SCH (10:33)
[2018-06-01] MEDS: LISINOPRIL 10 MG TABLET PO SCH (10:33)
[2018-06-01] MEDS: HYDROCHLOROTHIAZIDE 12.5 MG TABLET PO SCH (10:33)
[2018-06-01 10:42] LABS: ANION GAP 7 (5-19); BLOOD UREA NITROGEN 14 mg/dL (7-20); C-REACTIVE PROTEIN 14.5 mg/L (<10.0); CARBON DIOXIDE 26 mmol/L (22-30); CHLORIDE 105 mmol/L (98-107); GLUCOSE 121 mg/dL (75-110); PHOSPHORUS 2.7 mg/dL (2.5-4.5); SODIUM 138.3 mmol/L (137-145)
[2018-06-01 10:44] LABS: POTASSIUM 2.9 mmol/L (3.6-5.0)
[2018-06-01] MEDS ORDERED: POTASSIUM CHLORIDE 10 MEQ CAPSULE.ER PO ONE (13:00)
[2018-06-01] MEDS ORDERED: MAGNESIUM SULFATE/D5W 1 GM/100 ML RTUPB IV ONE (13:00)
[2018-06-01] MEDS: POTASSI CL 20 MEQ/50 ML RIDER 20 MEQ/50 ML RTUPB IV SCH ×2 (13:49→16:37)
--- NOTE | 2018-06-01 18:01 | PDOC PROGRESS REPORT ---
<RUFINO SHARP - Last Filed: 06/01/18 17:53> Subjective Progress Note for:: 06/01/18 Subjective:: 72 y.o. F admitted with abdominal pain found to have acute enteritis on CT. Likely inflammatory secondary to medication - patient reports she took aspirin powder and an unknown laxative around the time that her symptoms started. Additionally, the patient states she ingested apple cider vinegar with the medications. She states that she began experiencing abdominal pain/N/V shortly thereafter. Lab work today is concerning, patient is very HYPOkalemic, CRP is elevated, and her lactate is 1.3. VS have remained relatively stable, although she has been experiencing a low grade temp 99.2 for the last 36 hrs. The patient was able to tolerate solid food at lunch today. Clinically, the patient appears to be doing better. However, based on her lab work and persistent low grade temp, I am hesitant to discharge her home too early. Plan to keep overnight and recheck labs in AM. Barring any complications , will discharge tomorrow AM. Reason For Visit: ACUTE ENTERITIS Physical Exam Vital Signs: Temp Pulse Resp BP Pulse Ox 98.8 F 96 14 164/86 H 97 06/01/18 15:16 06/01/18 15:16 06/01/18 15:16 06/01/18 15:16 06/01/18 15:16 Intake & Output 05/31/18 06/01/18 06/02/18 06:59 06:59 06:59 Intake Total 4025 1950 605 Output Total 720 2950 900 Balance 3305 -1000 -295 Weight 77.9 kg 74.4 kg General appearance: PRESENT: no acute distress, well-developed, well-nourished Head exam: PRESENT: atraumatic, normocephalic Eye exam: PRESENT: conjunctiva pink, EOMI, PERRLA. ABSENT: scleral icterus Ear exam: PRESENT: normal external ear exam Mouth exam: PRESENT: moist, tongue midline Neck exam: ABSENT: carotid bruit, JVD, lymphadenopathy, thyromegaly Respiratory exam: PRESENT: clear to auscultation isaías. ABSENT: rales, rhonchi, wheezes Cardiovascular exam: PRESENT: RRR. ABSENT: diastolic murmur, rubs, systolic murmur Pulses: PRESENT: normal dorsalis pedis pul Vascular exam: PRESENT: normal capillary refill GI/Abdominal exam: PRESENT: soft. ABSENT: distended, guarding, mass, organolmegaly, rebound, tenderness Rectal exam: PRESENT: deferred Extremities exam: PRESENT: full ROM. ABSENT: calf tenderness, clubbing, pedal edema Musculoskeletal exam: PRESENT: ambulatory, full ROM Neurological exam: PRESENT: alert, awake, oriented to person, oriented to place , oriented to time, oriented to situation Skin exam: PRESENT: dry, intact, warm. ABSENT: cyanosis, rash Results Laboratory Results: 06/01/18 10:03 06/01/18 10:03 06/01/18 06/01/18 06/01/18 10:03 10:03 10:03 WBC 7.3 RBC 3.90 Hgb 12.5 Hct 37.0 MCV 95 MCH 32.1 MCHC 33.9 RDW 13.6 Plt Count 237 Sodium 138.3 Potassium 2.9 L* Chloride 105 Carbon Dioxide 26 Anion Gap 7 BUN 14 Creatinine 0.73 Est GFR ( Amer) > 60 Est GFR (Non-Af Amer) > 60 Glucose 121 H Lactic Acid 1.3 Calcium 9.0 Phosphorus 2.7 Magnesium 1.9 C-Reactive Protein 14.5 H 05/30/18 01:13 Troponin I < 0.012 Impressions: Acute Abdomen Series 05/29/18 21:44 IMPRESSION: No acute findings. Abdomen/Pelvis CT 05/29/18 23:34 IMPRESSION: 1. Long segment wall thickening with decreased wall attenuation and adjacent mesenteric inflammatory change of loops of small bowel in the lower abdomen. These findings are compatible with nonspecific enteritis. This could be of infectious, inflammatory, or ischemic etiology. No proximal occlusion noted of the visceral arteries. 2. Moderate amount of ascites. 3. Mild gastric distention with fluid in the esophagus. These findings may be related to gastroparesis. 4. There is a 6.9 cm structure arising from the uterus with peripheral calcifications possibly representing a uterine fibroid. This exam was performed according to our departmental dose-optimization program, which includes automated exposure control, adjustment of the mA and/or kV according to patient size and/or use of iterative reconstruction technique. KUB X-Ray 05/30/18 06:46 IMPRESSION: The nasogastric tube extends below the diaphragm and projects over the region of the body of the stomach. Status: Imported from PACS Assessment & Plan - Diagnosis (1) Lactic acidosis Is this a current diagnosis for this admission?: Yes Plan: RESOLVED Lactate 1.3 today, down from 3.7 Continue IVF Will recheck in AM (2) Enteritis Is this a current diagnosis for this admission?: Yes Plan: N/V/ABDOMINAL PAIN Likely inflammatory, no clear infectious source CRP elevated to 14 Patient denies abdominal pain today D/C NG tube Initiate solid foods today. Patient able to tolerate dinner tray. (3) Essential hypertension Is this a current diagnosis for this admission?: Yes Plan: Patient has a PMH of HTN Continue home dose lisinopril PRN Lopressor for SBP >170 (4) Generalized abdominal pain Is this a current diagnosis for this admission?: Yes Plan: RESOLVED Secondary to enteritis Patient denies abdominal pain today D/C NGT (5) Nausea and vomiting QualifierTitle: Vomiting type: unspecified Vomiting Intractability: unspecified Qualified Code(s): R11.2 - Nausea with vomiting, unspecified Is this a current diagnosis for this admission?: Yes Plan: RESOLVED PRN Zofran (6) Severe dehydration Is this a current diagnosis for this admission?: Yes Plan: Secondary to GI loss stemming from enteritis Treated with IVF bolus and maintenance IVF Continue IVF until patient can tolerate PO (7) Hypokalemia Is this a current diagnosis for this admission?: Yes Plan: Likely secondary to poor nutrition and GI loss Replace K and Mag per electrolyte protocol Follow daily chemistries - Time Time Spent with patient: 15-24 minutes Medications reviewed and adjusted accordingly: Yes Anticipated discharge: Home Within: within 24 hours - Inpatient Certification Based on my medical assessment, after consideration of the patient's comorbidities, presenting symptoms, or acuity I expect that the services needed warrant INPATIENT care.: Yes I certify that my determination is in accordance with my understanding of Medicare's requirements for reasonable and necessary INPATIENT services [42 CFR 412.3e].: Yes Medical Necessity: Need For IV Fluids, Risk of Complication if Not Cared For in Hospital - Plan Summary Plan Summary: CONTINUE IVF. CHECK LABS IN AM. BARRING ANY COMPLICATIONS, D/C HOME TOMORROW <RODOLFO DAVIS - Last Filed: 06/17/18 17:14> Subjective Reason For Visit: ACUTE ENTERITIS Physical Exam Vital Signs: Temp Pulse Resp BP Pulse Ox 99.3 F 102 H 18 165/72 H 99 06/02/18 09:39 06/02/18 09:39 06/02/18 09:39 06/02/18 09:39 06/02/18 09:39 Results Laboratory Results: 06/02/18 04:38 06/02/18 04:38 05/30/18 01:13 Troponin I < 0.012 Impressions: Acute Abdomen Series 05/29/18 21:44 IMPRESSION: No acute findings. Abdomen/Pelvis CT 05/29/18 23:34 IMPRESSION: 1. Long segment wall thickening with decreased wall attenuation and adjacent mesenteric inflammatory change of loops of small bowel in the lower abdomen. These findings are compatible with nonspecific enteritis. This could be of infectious, inflammatory, or ischemic etiology. No proximal occlusion noted of the visceral arteries. 2. Moderate amount of ascites. 3. Mild gastric distention with fluid in the esophagus. These findings may be related to gastroparesis. 4. There is a 6.9 cm structure arising from the uterus with peripheral calcifications possibly representing a uterine fibroid. This exam was performed according to our departmental dose-optimization program, which includes automated exposure control, adjustment of the mA and/or kV according to patient size and/or use of iterative reconstruction technique. KUB X-Ray 05/30/18 06:46 IMPRESSION: The nasogastric tube extends below the diaphragm and projects over the region of the body of the stomach. Provider Note Provider Note: I have discussed the patient with GELY Sharp. I am in agreement with her evaluation and plan.
[2018-06-01] MEDS: HYDRALAZINE HCL INJ/PF 20 MG/1 ML SDV IV PRN (21:49)
[2018-06-02 05:38] LABS: HEMOGLOBIN 11.9 g/dL (12.0-15.5); MEAN CORPUSCULAR VOLUME 94 fl (80-97); PLATELET COUNT 241 10^3/uL (150-450); RED BLOOD COUNT 3.72 10^6/uL (3.72-5.28); RED CELL DISTRIBUTION WIDTH 13.7 % (11.5-14.0); WHITE BLOOD COUNT 7.4 10^3/uL (4.0-10.5)
[2018-06-02 06:13] LABS: ALANINE AMINOTRANSFERASE 24 U/L (9-52); ALBUMIN 3.2 g/dL (3.5-5.0); ALKALINE PHOSPHATASE 64 U/L (38-126); ASPARTATE AMINO TRANSFERASE 31 U/L (14-36); BILIRUBIN,DIRECT 0.3 mg/dL (0.0-0.4); BILIRUBIN,TOTAL 0.6 mg/dL (0.2-1.3); BLOOD UREA NITROGEN 11 mg/dL (7-20); CALCIUM 9.4 mg/dL (8.4-10.2); CHLORIDE 106 mmol/L (98-107); GLUCOSE 106 mg/dL (75-110); POTASSIUM 3.6 mmol/L (3.6-5.0); TOTAL PROTEIN 6.9 g/dL (6.3-8.2)
[2018-06-02] MEDS: HEPARIN SOD (PORCINE) 5,000 UNIT/ML 1 ML SYRINGE SUBCUT SCH (06:14)
[2018-06-02] MEDS: CIPROFLOXACIN 400 MG/D5W RTU 400 MG/200 ML RTUPB IV SCH (06:15)
[2018-06-02] MEDS: METOCLOPRAMIDE HCL INJ/PF 10 MG/2 ML SDV IV SCH (06:15)
[2018-06-02 07:30] LABS: ANION GAP 9 (5-19); CARBON DIOXIDE 24 mmol/L (22-30); SODIUM 138.5 mmol/L (137-145)
[2018-06-02 09:44] VITALS: BP 165/72
--- NOTE | 2018-06-30 08:19 | PDOC DISCHARGE SUMMARY ---
General - Admit/Disc Date/PCP Admission Date/Primary Care Provider: 05/30/18 01:04 DINAH PATE MD Discharge Date: 06/02/18 - Discharge Diagnosis (1) Lactic acidosis Is this a current diagnosis for this admission?: Yes (2) Enteritis Is this a current diagnosis for this admission?: Yes (3) Essential hypertension Is this a current diagnosis for this admission?: Yes (4) Generalized abdominal pain Is this a current diagnosis for this admission?: Yes (5) Nausea and vomiting Is this a current diagnosis for this admission?: Yes (6) Severe dehydration Is this a current diagnosis for this admission?: Yes (7) Hypokalemia Is this a current diagnosis for this admission?: Yes - Additional Information Resuscitation Status: Full Code Discharge Diet: As Tolerated Discharge Activity: Activity As Tolerated Prescriptions: Lisinopril [Prinivil 10 mg Tablet] 10 mg PO DAILY #30 tablet Ondansetron [Ondansetron Odt] 4 mg PO Q6HP PRN #15 tab.rapdis PRN Reason: Micardis Hctz 80-12.5mg Tab 1 tab PO DAILY #30 Home Medications: Fluticasone Propionate [Flonase Nasal [place] 50 Mcg/[place] 16 gm] 1 spray NASL DAILYP PRN 05/30/18 Lisinopril [Prinivil 10 mg Tablet] 10 mg PO DAILY #30 tablet 06/02/18 Micardis Hctz 80-12.5mg Tab 1 tab PO DAILY #30 06/02/18 Ondansetron [Ondansetron Odt] 4 mg PO Q6HP PRN #15 tab.rapdis 06/02/18 History of Present Illness History of Present Illness: CHELSIE DELANEY is a 72 year old female comes to the emergency department complaining of abdominal pain, nausea and vomiting. She tells me that last Saturday she fell and broke her right arm, on Saturday she is started with a medication that she does not remember that was given for her arm and she started with abdominal pain, diffuse across her abdomen has been worsening over time, today was 10/10 intensity, sharp in nature, yesterday morning started with episodes of persistent nausea and nonbloody vomiting with clear secretions. Her appetite is severely decreased and she has been eating in the last 2 days. Tells me that she had an episode of fever today but no chills, denies diarrhea or urinary symptoms. Feels generalized weakness, denies dizziness or chills. She did not pass gas since morning, her last bowel movement was 2 days ago. Complains of abdominal distention. CT abdomen and pelvis done in the ED shows long segment wall thickening of a small bowel while compatible with enteritis associated with mesenteric inflammation. Given IV Rocephin and IV Flagyl in the ED. She also came with elevated blood pressure 220/119 LA 3.7. Hospital Course Hospital Course: 72 y.o. F admitted with abdominal pain found to have acute enteritis on CT. Likely inflammatory secondary to medication - patient reports she took aspirin powder and an unknown laxative around the time that her symptoms started. Additionally, the patient states she ingested apple cider vinegar with the medications. She states that she began experiencing abdominal pain/N/V shortly thereafter. The patient was diagnosed with inflammatory enteritis secondary to medications. Surgery was consulted for further evaluation. They did not recommend any type of surgical intervention, only IVF resuscitation and a nasogastric tube to relieve belching. Over the course of three days, the patient's lactate resolved with IVF resuscitation. Her NG tube was d/c'd and she was able to tolerate solid foods. After three days in the hospital, the patient was deemed safe for discharge. Surgery signed off. Vital signs were stable. Pain was controlled and able to tolerate solid foods. The patient stated she was out of her blood pressure medication and requested new prescriptions. For more information regarding the patient's hospital stay, please refer to the EMR. Physical Exam Vital Signs: Temp Pulse Resp BP Pulse Ox 99.3 F 102 H 18 165/72 H 99 06/02/18 09:39 06/02/18 09:39 06/02/18 09:39 06/02/18 09:39 06/02/18 09:39 Results Laboratory Results: 06/02/18 04:38 06/02/18 04:38 05/30/18 01:13 Troponin I < 0.012 Impressions: Acute Abdomen Series 05/29/18 21:44 IMPRESSION: No acute findings. Abdomen/Pelvis CT 05/29/18 23:34 IMPRESSION: 1. Long segment wall thickening with decreased wall attenuation and adjacent mesenteric inflammatory change of loops of small bowel in the lower abdomen. These findings are compatible with nonspecific enteritis. This could be of infectious, inflammatory, or ischemic etiology. No proximal occlusion noted of the visceral arteries. 2. Moderate amount of ascites. 3. Mild gastric distention with fluid in the esophagus. These findings may be related to gastroparesis. 4. There is a 6.9 cm structure arising from the uterus with peripheral calcifications possibly representing a uterine fibroid. This exam was performed according to our departmental dose-optimization program, which includes automated exposure control, adjustment of the mA and/or kV according to patient size and/or use of iterative reconstruction technique. KUB X-Ray 05/30/18 06:46 IMPRESSION: The nasogastric tube extends below the diaphragm and projects over the region of the body of the stomach. Status: Imported from PACS Qualifiers - * PATIENT BEING DISCHARGED WITH ANY OF THE FOLLOWING DIAGNOSIS: No Plan Time Spent: Less than 30 Minutes
== END 2018-06-02 10:40 | disposition home or self-care (01) | DRG 394 ==
LOC: ER 20:01 → EH 05-30 01:04 → 4S 05-30 14:24
PROVIDERS: ADMIT Internal Medicine; ATTEND Internal Medicine
PROC: 0D9670Z Drainage of Stomach with Drainage Device, Via Natural or Artificial Opening (ICD-10-PCS; principal; 2018-05-30)
DX: K52.1 Toxic gastroenteritis and colitis (principal); R18.8 Other ascites; E87.2 Acidosis; T39.015A Adverse effect of aspirin, initial encounter; T47.4X5A Adverse effect of other laxatives, initial encounter; K59.09 Other constipation; I10 Essential (primary) hypertension; E86.0 Dehydration; I16.0 Hypertensive urgency; E87.6 Hypokalemia; D25.9 Leiomyoma of uterus, unspecified; Z96.651 Presence of right artificial knee joint; Z87.891 Personal history of nicotine dependence; Z91.81 History of falling; Z91.14 Patient's other noncompliance with medication regimen; Z82.49 Family history of ischemic heart disease and other diseases of the circulatory system
CPT/HCPCS: 36415; 74018; 74022; 74177; 80048; 80053; 81001; 83605; 83690; 83735; 84100; 84484; 85025; 85027; 85610; 85730; 86140; 87040; 93005; 93010; 96374; 96375; 99285; J0360; J0696; J0744; J1644; J2270; J2405; J2765; J3475; J3480; J3490; J7030; J7120; S0164